=== PATIENT | male | born 1965 | race Caucasian/White ===

== ENCOUNTER 2018-03-13 08:16 | Emergency (ER) | payer SELFPAY ==
[2018-03-13] MEDS ORDERED: HYDROCODONE/APAP 10/325 TAB ONE (08:39)
[2018-03-13] MEDS ORDERED: CLINDAMYCIN 900MG/D5W 900 MG/50 ML BAG IV ONE (08:40)
--- NOTE | 2018-03-13 08:58 | ER ---
Nurse's Notes [facility] Name: Frank Rizvi Age: 52 yrs Sex: Male : 1965 Arrival Date: 03/13/2018 Time: 08:17 Bed 7 Private MD: None, None Diagnosis: Dental caries;Facial cellulitis Presentation: 03/13 08:14 Presenting complaint: EMS states: toothpain and right jaw swelling x 1 day. BP 137/88 sv HR-85 RR-18 Temp-99.8 95% RA. Transition of care: patient was not received from another setting of care. Onset of symptoms was March 12, 2018. Care prior to arrival: None. 08:14 Method Of Arrival: EMS: [facility] sv 08:14 Acuity: JAIR 3 sv 09:14 Risk Assessment: Do you want to hurt yourself or someone else? Patient reports no hb desire to harm self or others. Initial Sepsis Screen: Does the patient have a suspected source of infection? No. Patient's initial sepsis screen is negative. 09:34 Initial Sepsis Screen: Does the patient meet any 2 criteria?. hb Historical: - Allergies: 08:21 Toradol; sv 08:21 Tramadol HCl; sv - PMHx: 08:21 chronic intestinal problems; Chronic pain; constipation; fall-internal and back sv injuries; Kidney stones; - PSHx: 08:21 back surg; Knee surgery; sv - Immunization history:: Adult Immunizations up to date. - Social history:: Smoking status: Patient uses tobacco products, smokes one pack cigarettes per day. - Family history:: not pertinent. - Ebola Screening: : No symptoms or risks identified at this time. - Hospitalizations: : No recent hospitalization is reported. Screenin:52 Abuse screen: Denies threats or abuse. Denies injuries from another. Nutritional sg screening: No deficits noted. Tuberculosis screening: Never had TB. Fall Risk None identified. Assessment: 08:50 General: Appears in no apparent distress. uncomfortable, well groomed, well developed, sg well nourished, Behavior is calm, cooperative, appropriate for age. Pain: Complains of pain in right cheek and right jaw Quality of pain is described as throbbing. Neuro: Level of Consciousness is awake, alert, obeys commands, Oriented to person, place, time, Speech is normal, Facial symmetry appears normal. Cardiovascular: Heart tones S1 S2 present Capillary refill is brisk in bilateral fingers Patient's skin is warm and dry. Respiratory: Airway is patent Respiratory effort is even, unlabored, Respiratory pattern is regular, symmetrical. GI: Abdomen is round non-distended. : No signs and/or symptoms were reported regarding the genitourinary system. EENT: Oral mucosa is moist. Poor dentition noted. Throat is pink. Derm: Skin is pink, warm \T\ dry. Musculoskeletal: No signs and/or symptoms reported regarding the musculoskeletal system. Musculoskeletal: Swelling present in right cheek. 09:15 Reassessment: Patient appears in no apparent distress at this time. awaiting IV sg clindamycin to continue infusing prior to dc to home. Vital Signs: 08:20 BP 153 / 101; Pulse 78; Resp 18; Temp 98.5; Pulse Ox 100% ; Weight 65.77 kg; Height 5 sv ft. 7 in. (170.18 cm); Pain 7/10; 09:21 BP 128 / 88; Pulse 79; Resp 18; Pulse Ox 100% on R/A; sg 08:20 Body Mass Index 22.71 (65.77 kg, 170.18 cm) sv [place] Coma Score: 09:21 Eye Response: spontaneous(4). Verbal Response: oriented(5). Motor Response: obeys sg commands(6). Total: 15. ED Course: 08:17 Patient arrived in ED. rn 08:17 Medhat Hernandez MD is Attending Physician. rn 08:17 Ken Hall, GENESIS is Primary Nurse. sg 08:18 None, None is Private Physician. sg 08:18 Arm band placed on. sg 08:20 Triage completed. sv 08:53 Inserted saline lock: 22 gauge in right forearm, using aseptic technique. Blood sg collected. 09:15 Patient has correct armband on for positive identification. hb 09:35 No provider procedures requiring assistance completed. IV discontinued, intact, hb bleeding controlled, No redness/swelling at site. Pressure dressing applied. Administered Medications: 08:40 Drug: [place] 10 mg-325 mg 1 tabs Route: PO; sg 09:20 Follow up: Response: No adverse reaction; Pain is decreased sg 08:50 Drug: Clindamycin 900 mg Route: IVPB; Infused Over: 30 mins; Site: right forearm; sg 09:22 Follow up: Response: No adverse reaction; IV Status: Completed infusion sg Outcome: 08:58 Discharge ordered by . rn 09:35 Discharged to home ambulatory. hb 09:35 Condition: stable 09:35 Discharge instructions given to patient, Instructed on discharge instructions, follow up and referral plans. medication usage, Demonstrated understanding of instructions, follow-up care, medications, Prescriptions given X 2. 09:35 Patient left the ED. hb Signatures: Pepper Genao RN RN Ken Hall RN RN Medhat Hernandez MD MD rn Baxter, Heather, RN RN Corrections: (The following items were deleted from the chart) 08:22 08:20 Pulse 78bpm; Resp 18bpm; Pulse Ox 100%; Temp 98.5F; 65.77 kg; Height 5 ft. 7 in.; sv BMI: 22.7; Pain 7/10; sv
--- NOTE | 2018-03-13 08:58 | EDPHYS ---
Physician Documentation [facility] Name: Frank Rizvi Age: 52 yrs Sex: Male : 1965 Arrival Date: 03/13/2018 Time: 08:17 Bed 7 Private MD: None, None ED Physician Medhat Hernandez HPI: 03/13 08:18 This 52 yrs old Male presents to ER via Unassigned with complaints of facial rn swelling. 08:18 The patient presents with pain, swelling. Onset: The symptoms/episode began/occurred rn yesterday. Duration: The symptoms are continuous. Associated signs and symptoms: Pertinent positives: swelling, Pertinent negatives: fever, inability to eat, vomiting. The patient has experienced a previous episode. The patient has not recently seen a physician. Reports chronic dental problems, hasn't had them fixed yet, waiting on disability, presents with 1 day of swelling to right side of face, no fever, no trauma. No trouble swallowing or speaking.. Historical: - Allergies: 08:21 Toradol; sv 08:21 Tramadol HCl; sv - PMHx: 08:21 chronic intestinal problems; Chronic pain; constipation; fall-internal and back sv injuries; Kidney stones; - PSHx: 08:21 back surg; Knee surgery; sv - Immunization history:: Adult Immunizations up to date. - Social history:: Smoking status: Patient uses tobacco products, smokes one pack cigarettes per day. - Family history:: not pertinent. - Ebola Screening: : No symptoms or risks identified at this time. - Hospitalizations: : No recent hospitalization is reported. ROS: 08:18 Constitutional: Negative for fever, chills, and weight loss, Eyes: Negative for injury, rn pain, redness, and discharge, ENT: + chronic dental problems, + facial swelling Cardiovascular: Negative for chest pain, palpitations, and edema, Respiratory: Negative for shortness of breath, cough, wheezing, and pleuritic chest pain, Abdomen/GI: Negative for abdominal pain, nausea, vomiting, diarrhea, and constipation, MS/Extremity: Negative for injury and deformity, Skin: Negative for injury Neuro: + mild headache Exam: 08:18 Constitutional: Thin, discheveled male, no acute distress, ambulatory without rn assistance. Head/Face: atraumatic. Eyes: Pupils equal round and reactive to light, extra-ocular motions intact. Lids and lashes normal. Conjunctiva and sclera are non-icteric and not injected. Cornea within normal limits. Periorbital areas with no swelling, redness, or edema. ENT: + poor dentition without oral abscess, + mild swelling/edema of right cheek/face without fluctuance or tenderness Neck: Trachea midline, no thyromegaly or masses palpated, and no cervical lymphadenopathy. Supple, full range of motion without nuchal rigidity, or vertebral point tenderness. No Meningismus. Neuro: Awake and alert, GCS 15, oriented to person, place, time, and situation. Cranial nerves II-XII grossly intact. Motor strength 5/5 in all extremities. Sensory grossly intact. Cerebellar exam normal. Normal gait. Vital Signs: 08:20 BP 153 / 101; Pulse 78; Resp 18; Temp 98.5; Pulse Ox 100% ; Weight 65.77 kg; Height 5 sv ft. 7 in. (170.18 cm); Pain 7/10; 09:21 BP 128 / 88; Pulse 79; Resp 18; Pulse Ox 100% on R/A; sg 08:20 Body Mass Index 22.71 (65.77 kg, 170.18 cm) sv [place] Coma Score: 09:21 Eye Response: spontaneous(4). Verbal Response: oriented(5). Motor Response: obeys sg commands(6). Total: 15. MDM: 08:17 Patient medically screened. rn 08:57 Differential diagnosis: dental caries, buccal cellulitis, facial cellulitis. Data rn reviewed: vital signs, nurses notes, and as a result, I will discharge patient. Counseling: I had a detailed discussion with the patient and/or guardian regarding: the historical points, exam findings, and any diagnostic results supporting the discharge/admit diagnosis, the need for outpatient follow up, to return to the emergency department if symptoms worsen or persist or if there are any questions or concerns that arise at home. Special discussion: I discussed with the patient/guardian in detail that at this point there is no indication for admission to the hospital. It is understood, however, that if the symptoms persist or worsen the patient needs to return immediately for re-evaluation. Based on the history and exam findings, there is no indication for further emergent testing or inpatient evaluation. I discussed with the patient/guardian the need to see a dentist for further evaluation of the symptoms. ED course: No evidence of abscess, + early facial/buccal cellulitis, will dc home with abx, told ot return if worsens. . 03/13 08:22 Order name: IV Start; Complete Time: 08:54 rn Administered Medications: 08:40 Drug: [place] 10 mg-325 mg 1 tabs Route: PO; sg 09:20 Follow up: Response: No adverse reaction; Pain is decreased sg 08:50 Drug: Clindamycin 900 mg Route: IVPB; Infused Over: 30 mins; Site: right forearm; sg 09:22 Follow up: Response: No adverse reaction; IV Status: Completed infusion sg Disposition: 03/13/18 08:58 Discharged to Home. Impression: Dental caries, Facial cellulitis. - Condition is Stable. - Discharge Instructions: Dental Pain, Preseptal Cellulitis, Adult. - Prescriptions for Amoxicillin 875 mg Oral Tablet - take 1 tablet by ORAL route every 12 hours for 10 days; 20 tablet. Clindamycin HCl 300 mg Oral Capsule - take 1 capsule by ORAL route every 6 hours for 10 days; 40 capsule. - Medication Reconciliation Form, Thank You Letter, Antibiotic Education, Prescription Opioid Use form. - Follow up: Private Physician; When: As needed; Reason: Recheck today's complaints, Re-evaluation by your physician. - Problem is new. - Symptoms have improved. Signatures: Pepper Genao RN RN Ken Hall RN RN Medhat Hernandez MD MD rn Baxter, Heather, RN RN Corrections: (The following items were deleted from the chart) 09:35 08:58 03/13/2018 08:58 Discharged to Home. Impression: Dental caries; Facial hb cellulitis. Condition is Stable. Forms are Medication Reconciliation Form, Thank You Letter, Antibiotic Education, Prescription Opioid Use. Follow up: Private Physician; When: As needed; Reason: Recheck today's complaints, Re-evaluation by your physician. Problem is new. Symptoms have improved. rn
== END 2018-03-13 09:35 | disposition home or self-care (01) ==
LOC: ER 08:16
DX: K02.9 Dental caries, unspecified (principal); L03.211 Cellulitis of face; F17.210 Nicotine dependence, cigarettes, uncomplicated; Z88.5 Allergy status to narcotic agent; Z88.6 Allergy status to analgesic agent
CPT/HCPCS: 96365; 99284

== ENCOUNTER 2019-02-05 20:45 | Inpatient (IN) | payer OTHER, SELFPAY ==
[2019-02-05] MEDS ORDERED: NA CHLORIDE 0.9% 1,000 ML ONE ×2 (21:07→22:53)
[2019-02-05] MEDS ORDERED: ONDANSETRON 4 MG/2 ML VIAL ONE (21:07)
[2019-02-05 21:27] LABS: Absolute Lymphocytes (CBC) 1.9 K/uL (0.7-4.9); Basophils % 0.6 % (0-1.3); Hematocrit 41.9 % (39.6-49.0); Lymphocytes % 18.1 % (15.3-44.8); MPV 7.8 fL (7.6-11.3); RBC Red Blood Cell Count 4.44 M/uL (4.33-5.43)
[2019-02-05 21:38] LABS: Albumin 4.7 g/dL (3.4-5.0); Bilirubin Direct 0.2 mg/dL (0-0.2); Bilirubin Total 0.4 mg/dL (0.2-1.0); Potassium 3.5 mmol/L (3.5-5.1)
[2019-02-05] MEDS ORDERED: FAMOTIDINE 20 MG/2 ML VIAL IV ONE (21:48)
[2019-02-05] MEDS ORDERED: FENTANYL CITR 100 MCG/2 ML ONE (22:03)
[2019-02-05 22:23] LABS: Urine Blood NEGATIVE (NEG); Urine Glucose NEGATIVE (NEG); Urine Protein 2+ (NEG); Urine Specific Gravity 1.025 (1.005-1.030)
--- NOTE | 2019-02-05 22:40 | EDPHYS ---
Physician Documentation [facility] Name: Frank Rizvi Age: 53 yrs Sex: Male : 1965 Arrival Date: 02/05/2019 Time: 20:48 Bed 25 Private MD: ED Physician José Miguel Cevallos HPI: 02/05 22:26 This 53 yrs old Male presents to ER via EMS with complaints of gs Nausea/Vomiting. 22:26 The patient presents to the emergency department with nausea, vomiting. Onset: The gs symptoms/episode began/occurred 2 day(s) ago. Possible causes: flare up of bowel problem. The symptoms are aggravated by food , The symptoms are alleviated by nothing. Associated signs and symptoms: Pertinent positives: abdominal pain, vomiting. Severity of symptoms: At their worst the symptoms were severe in the emergency department the symptoms are unchanged. The patient has experienced similar episodes in the past, a few times. Historical: - Allergies: 20:58 Toradol; ca1 20:58 Tramadol HCl; ca1 - Home Meds: 20:58 gabapentin oral oral [Active]; Ibuprofen Oral [Active]; ca1 - PMHx: 20:58 chronic intestinal problems; constipation; Chronic pain; fall-internal and back ca1 injuries; Kidney stones; - PSHx: 20:58 back surg; Knee surgery; ca1 - Immunization history:: Adult Immunizations not up to date. - Social history:: Smoking status: Patient uses tobacco products, smokes one-half pack cigarettes per day. - Ebola Screening: : Patient negative for fever greater than or equal to 101.5 degrees Fahrenheit, and additional compatible Ebola Virus Disease symptoms Patient denies exposure to infectious person Patient denies travel to an Ebola-affected area in the 21 days before illness onset No symptoms or risks identified at this time. ROS: 22:26 All other systems are negative. gs Exam: 22:26 Head/Face: Normocephalic, atraumatic. Eyes: Pupils equal round and reactive to light, gs extra-ocular motions intact. Lids and lashes normal. Conjunctiva and sclera are non-icteric and not injected. Cornea within normal limits. Periorbital areas with no swelling, redness, or edema. ENT: Nares patent. No nasal discharge, no septal abnormalities noted. Tympanic membranes are normal and external auditory canals are clear. Oropharynx with no redness, swelling, or masses, exudates, or evidence of obstruction, uvula midline. Mucous membranes moist. Neck: Trachea midline, no thyromegaly or masses palpated, and no cervical lymphadenopathy. Supple, full range of motion without nuchal rigidity, or vertebral point tenderness. No Meningismus. Chest/axilla: Normal chest wall appearance and motion. Nontender with no deformity. No lesions are appreciated. Cardiovascular: Regular rate and rhythm with a normal S1 and S2. No gallops, murmurs, or rubs. Normal PMI, no JVD. No pulse deficits. Respiratory: Lungs have equal breath sounds bilaterally, clear to auscultation and percussion. No rales, rhonchi or wheezes noted. No increased work of breathing, no retractions or nasal flaring. Back: No spinal tenderness. No costovertebral tenderness. Full range of motion. Skin: Warm, dry with normal turgor. Normal color with no rashes, no lesions, and no evidence of cellulitis. MS/ Extremity: Pulses equal, no cyanosis. Neurovascular intact. Full, normal range of motion. Neuro: Awake and alert, GCS 15, oriented to person, place, time, and situation. Cranial nerves II-XII grossly intact. Motor strength 5/5 in all extremities. Sensory grossly intact. Cerebellar exam normal. Normal gait. 22:26 Constitutional: The patient appears alert, awake, uncomfortable. 22:26 Abdomen/GI: Inspection: abdomen appears normal, Palpation: soft, in all quadrants, mild abdominal tenderness, in all quadrants, rebound tenderness, is not appreciated. Vital Signs: 20:58 BP 126 / 78; Pulse 93; Resp 16 S; Temp 98.7(O); Pulse Ox 99% on R/A; Weight 65.77 kg ca1 (R); Height 5 ft. 7 in. (170.18 cm) (R); Pain 9/10; 22:12 BP 152 / 83; Pulse 82; Resp 16 S; Pulse Ox 99% on R/A; ca1 23:55 BP 125 / 80; Pulse 82; Resp 15; Pulse Ox 98% on R/A; rv 20:58 Body Mass Index 22.71 (65.77 kg, 170.18 cm) ca1 MDM: 21:06 Patient medically screened. gs 22:26 Differential diagnosis: Nonspecific abd pain, gastritis, pancreatitis, gastroenteritis. gs Data reviewed: vital signs, nurses notes, old medical records, lab test result(s), EKG, radiologic studies. Counseling: I had a detailed discussion with the patient and/or guardian regarding: lab results, the need for further work-up and treatment in the hospital. Response to treatment: the patient's symptoms have markedly improved after treatment, and as a result, I will admit patient. 02/05 21:04 Order name: Basic Metabolic Panel; Complete Time: 21:47 02/05 21:04 Order name: CBC with Diff; Complete Time: 21:47 02/05 21:04 Order name: Hepatic Function; Complete Time: 21:47 02/05 21:04 Order name: Lipase; Complete Time: 21:47 02/05 22:06 Order name: Urine Dipstick--Ancillary (enter results); Complete Time: 22:47 ag4 02/05 23:18 Order name: Comprehensive Metabolic Panel [facility] 02/05 23:18 Order name: Comprehensive Metabolic Panel [facility] 02/05 23:19 Order name: CONS Pharmacy Consult [facility] 02/05 23:19 Order name: NPO [facility] 02/05 21:04 Order name: IV Saline Lock; Complete Time: 21:15 02/05 21:04 Order name: Labs collected and sent; Complete Time: 21:15 02/05 21:47 Order name: EKG - Nurse/Tech; Complete Time: 22:09 gs Administered Medications: 21:18 Drug: NS 0.9% 1000 ml Route: IV; Rate: 1 bolus; Site: left antecubital; ca1 22:38 Follow up: Response: No adverse reaction; IV Status: Completed infusion; IV Intake: ca1 1000ml 21:18 Drug: Zofran 4 mg Route: IVP; Site: left antecubital; ca1 22:38 Follow up: Response: No adverse reaction; Nausea is decreased ca1 21:55 Drug: Pepcid 20 mg Route: IVP; Site: left antecubital; rv 22:37 Follow up: Response: No adverse reaction ca1 22:05 Drug: fentaNYL (PF) 50 mcg {Note: rass: 1.} Route: IVP; Site: left antecubital; rv 22:37 Follow up: Response: No adverse reaction; Pain is decreased; RASS: Alert and Calm (0) ca1 22:57 Drug: NS 0.9% 1000 ml Route: IV; Rate: 150 ml/hr; Site: left antecubital; ca1 22:58 Follow up: IV Status: Infusion continued upon admission ca1 Disposition: 02/05/19 22:38 Hospitalization ordered by Barry Katz for Inpatient Admission. Preliminary diagnosis are Acute pancreatitis, Cyclical vomiting, intractable. - Bed requested for Telemetry/MedSurg (Inpatient). - Status is Inpatient Admission. rv - Condition is Stable. - Problem is new. - Symptoms have improved. UTI on Admission? No Signatures: Dispatcher [employer] EDHelga Ashford RN RN cg José Miguel Cevallos MD MD Maciej Ray RN RN rv Acob, GENESIS Sheriff RN ca1 Corrections: (The following items were deleted from the chart) 22:47 22:38 Hospitalization Ordered by Barry Katz MD for Inpatient Admission. Preliminary diagnosis is Acute pancreatitis. Bed requested for Telemetry/MedSurg (Inpatient). Status is Inpatient Admission. Condition is Stable. Problem is new. Symptoms have improved. UTI on Admission? No. gs 23:54 22:47 02/05/2019 22:38 Hospitalization Ordered by Barry Katz MD for Inpatient cg Admission. Preliminary diagnosis is Acute pancreatitis; Cyclical vomiting, intractable. Bed requested for Telemetry/MedSurg (Inpatient). Status is Inpatient Admission. Condition is Stable. Problem is new. Symptoms have improved. UTI on Admission? No. 02/06 00:12 02/05 23:54 02/05/2019 22:38 Hospitalization Ordered by Barry Katz MD for Inpatient rv Admission. Preliminary diagnosis is Acute pancreatitis; Cyclical vomiting, intractable. Bed requested for Telemetry/MedSurg (Inpatient). Status is Inpatient Admission. Condition is Stable. Problem is new. Symptoms have improved. UTI on Admission? No.
--- NOTE | 2019-02-05 22:40 | ER ---
Nurse's Notes [facility] Name: Frank Rizvi Age: 53 yrs Sex: Male : 1965 Arrival Date: 02/05/2019 Time: 20:48 Bed 25 Private MD: Diagnosis: Acute pancreatitis;Cyclical vomiting, intractable Presentation: 02/05 20:53 Presenting complaint: EMS states: pt c/o N/V and abdominal pain for 2 days. Pt reports ca1 he had a spinal injury on 2014 that left a part of his intestine numb. 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 Transition of care: patient was not received from another setting of care. Onset of symptoms was February 05, 2019. Risk Assessment: Do you want to hurt yourself or someone else? Patient reports no desire to harm self or others. Initial Sepsis Screen: Does the patient meet any 2 criteria? No. Patient's initial sepsis screen is negative. Does the patient have a suspected source of infection? No. Patient's initial sepsis screen is negative. Care prior to arrival: None. 20:53 Method Of Arrival: EMS: [facility] ca1 20:53 Acuity: JAIR 3 ca1 Historical: - Allergies: 20:58 Toradol; ca1 20:58 Tramadol HCl; ca1 - Home Meds: 20:58 gabapentin oral oral [Active]; Ibuprofen Oral [Active]; ca1 - PMHx: 20:58 chronic intestinal problems; constipation; Chronic pain; fall-internal and back ca1 injuries; Kidney stones; - PSHx: 20:58 back surg; Knee surgery; ca1 - Immunization history:: Adult Immunizations not up to date. - Social history:: Smoking status: Patient uses tobacco products, smokes one-half pack cigarettes per day. - Ebola Screening: : Patient negative for fever greater than or equal to 101.5 degrees Fahrenheit, and additional compatible Ebola Virus Disease symptoms Patient denies exposure to infectious person Patient denies travel to an Ebola-affected area in the 21 days before illness onset No symptoms or risks identified at this time. Screenin:59 Abuse screen: Denies threats or abuse. Denies injuries from another. Nutritional ca1 screening: No deficits noted. Tuberculosis screening: No symptoms or risk factors identified. Fall Risk None identified. Assessment: 20:59 General: Appears in no apparent distress. comfortable, Behavior is calm, cooperative, ca1 appropriate for age. Pain: Complains of pain in umbilical area Pain does not radiate. Pain currently is 9 out of 10 on a pain scale. Quality of pain is described as stabbing, Pain began 2-3 days ago. Is intermittent. Neuro: Level of Consciousness is awake, alert, obeys commands, Oriented to person, place, time, situation, Appropriate for age. Cardiovascular: Heart tones S1 S2 present Capillary refill < 3 seconds Patient's skin is warm and dry. Respiratory: Airway is patent Respiratory effort is even, unlabored, Respiratory pattern is regular, symmetrical, Breath sounds are clear bilaterally. GI: Abdomen is flat, non-distended, Bowel sounds present X 4 quads. Abd is soft X 4 quads Abdomen is tender to palpation in umbilical area Reports constipation, diarrhea, nausea, vomiting. : No deficits noted. No signs and/or symptoms were reported regarding the genitourinary system. EENT: No deficits noted. No signs and/or symptoms were reported regarding the EENT system. Derm: Skin is intact, is healthy with good turgor, Skin is pink, warm \T\ dry. Musculoskeletal: Circulation, motion, and sensation intact. Capillary refill < 3 seconds, Range of motion: intact in all extremities. 22:12 Reassessment: Patient appears in no apparent distress at this time. Patient and/or ca1 family updated on plan of care and expected duration. Pain level reassessed. Patient is alert, oriented x 3, equal unlabored respirations, skin warm/dry/pink. Vital Signs: 20:58 BP 126 / 78; Pulse 93; Resp 16 S; Temp 98.7(O); Pulse Ox 99% on R/A; Weight 65.77 kg ca1 (R); Height 5 ft. 7 in. (170.18 cm) (R); Pain 9/10; 22:12 BP 152 / 83; Pulse 82; Resp 16 S; Pulse Ox 99% on R/A; ca1 23:55 BP 125 / 80; Pulse 82; Resp 15; Pulse Ox 98% on R/A; rv 20:58 Body Mass Index 22.71 (65.77 kg, 170.18 cm) ca1 ED Course: 20:48 Patient arrived in ED. ds1 20:50 José Miguel Cevallos MD is Attending Physician. gs 20:52 Sharita Metz, RN is Primary Nurse. ca1 20:56 Triage completed. ca1 20:58 Arm band placed on right wrist. ca1 20:59 Patient has correct armband on for positive identification. Bed in low position. Call ca1 light in reach. Side rails up X 1. Pulse ox on. NIBP on. Warm blanket given. 21:18 No provider procedures requiring assistance completed. Inserted saline lock: 20 gauge ca1 in left antecubital area, using aseptic technique. Blood collected. 22:38 Barry Katz MD is Hospitalizing Provider. 02/06 00:11 Patient admitted, IV remains in place. rv Administered Medications: 02/05 21:18 Drug: NS 0.9% 1000 ml Route: IV; Rate: 1 bolus; Site: left antecubital; ca1 22:38 Follow up: Response: No adverse reaction; IV Status: Completed infusion; IV Intake: ca1 1000ml 21:18 Drug: Zofran 4 mg Route: IVP; Site: left antecubital; ca1 22:38 Follow up: Response: No adverse reaction; Nausea is decreased ca1 21:55 Drug: Pepcid 20 mg Route: IVP; Site: left antecubital; rv 22:37 Follow up: Response: No adverse reaction ca1 22:05 Drug: fentaNYL (PF) 50 mcg {Note: rass: 1.} Route: IVP; Site: left antecubital; rv 22:37 Follow up: Response: No adverse reaction; Pain is decreased; RASS: Alert and Calm (0) ca1 22:57 Drug: NS 0.9% 1000 ml Route: IV; Rate: 150 ml/hr; Site: left antecubital; ca1 22:58 Follow up: IV Status: Infusion continued upon admission ca1 Intake: 22:38 IV: 1000ml; Total: 1000ml. ca1 Outcome: 22:38 Decision to Hospitalize by Provider. 02/06 00:10 Admitted to Med/surg accompanied by nurse, via wheelchair, room 204, with chart, Report rv called to [facility]EN Condition: good Instructed on the need for admit. 00:12 Patient left the ED. rv Signatures: Brenda Cline ds1 José Miguel Cevallos MD MD Maciej Ray RN RN rv Sharita Metz RN RN ca1
[2019-02-05] MEDS ORDERED: MORPHINE 4 MG/ML SYR IV PRN (23:13)
[2019-02-05] MEDS ORDERED: ONDANSETRON 4 MG/2 ML VIAL IV PRN (23:13)
[2019-02-05] MEDS ORDERED: ACETAMINOPHEN 500 MG TAB PO PRN (23:13)
[2019-02-06] MEDS: NA CHLORIDE 0.9% 1,000 ML IV SCH ×5 (00:52→21:39)
[2019-02-06 02:36] VITALS: BMI 23.5
[2019-02-06 05:42] LABS: Absolute Lymphocytes (CBC) 3.1 K/uL (0.7-4.9); Basophils % 1.2 % (0-1.3); Hematocrit 35.7 % (39.6-49.0)
[2019-02-06 05:45] LABS: ALT/SGPT 41 U/L (12-78); AST/SGOT 31 U/L (15-37); Albumin 3.9 g/dL (3.4-5.0); Alkaline Phosphatase 102 U/L (45-117); BUN Blood Urea Nitrogen 22 mg/dL (7-18); Bicarbonate 26 mmol/L (21-32); Bilirubin Total 0.4 mg/dL (0.2-1.0); Glucose Level 104 mg/dL (74-106); Lipase 497 U/L (73-393); Potassium 3.3 mmol/L (3.5-5.1); Protein, Total 8.2 g/dL (6.4-8.2); Sodium Level 138 mmol/L (136-145); Troponin I < 0.02 ng/mL (0.0-0.045)
[2019-02-06 05:57] LABS: Protime INR 1.01
[2019-02-06] MEDS ORDERED: MAGNESIUM CITRATE 300 ML BOT PO SCH (06:00)
--- NOTE | 2019-02-06 09:48 | EKG ---
Test Date: 2019-02-05 Test Time: 22:06:56 Bander Operator: SHAUNNA MEASUREMENT RESULTS: Intervals: Rate: 80 TN: 162 QRSD: 100 QT: 368 QTc: 424 [place]: P: 52 TN: 162 QRS: 71 T: 70 INTERPRETIVE STATEMENTS: Normal sinus rhythm Incomplete right bundle branch block Septal infarct, age undetermined Abnormal ECG Compared to ECG 01/15/2016 14:14:06 Incomplete right bundle-branch block now present Myocardial infarct finding now present Electronically Signed On 02-06-19 09:47:31 CDT by Solo Alvares
--- NOTE | 2019-02-06 10:15 | P.HP ---
Certification for Inpatient Patient admitted to: Inpatient With expected LOS: >2 Midnights Patient will require the following post-hospital care: None Practitioner: I am a practitioner with admitting privileges, knowledge of patient current condition, hospital course, and medical plan of care. Services: Services provided to patient in accordance with Admission requirements found in Title 42 Section 412.3 of the Code of Federal Regulations Patient History Date of Service: 02/05/19 Reason for admission: Acute pancreatitis History of Present Illness: Patient is a 53-year-old gentleman who came into the hospital with abdominal pain. He has had frequent admissions for abdominal pain. He has had a spinal cord injury that was suffered a long time ago. He required surgical intervention. The weakness and paralysis did not significantly improve. He has also had intestinal issues. He has developed bladder and bowel retention. He tends to have a lot of issue with constipation. He was having nausea and vomiting and abdominal pain. He was thinking this was related to his prior issues since his spinal cord injury. He decided to come into the hospital for evaluation. Surprisingly his labs revealed he had acute pancreatitis. Decision was made to admit the patient to the hospital for further evaluation. Allergies ketorolac Allergy (Verified 02/06/19 00:25) Hives/Rash Tramadol HCl Allergy (Uncoded 02/06/19 00:25) Hives/Rash - Past Medical/Surgical History Has patient received pneumonia vaccine in the past: No Diabetic: No -: paralyzed intestine -: chronic pain -: artificial vertebrae -: titanium plates-back -: spinal cord injury-back injury -: kidney stones -: Back surgery -: Left knee surgery -: Kidney stone removal - Family History Father Medical History: Heart disease, Other (see notes) Notes: heart attack Mother Medical History: Hypertension Grandmother Medical History: Cancer, Other (see notes) Notes: ovarian CA - Social History Smoking Status: Current every day smoker Alcohol use: No CD- Drugs: No Caffeine use: Yes Place of Residence: Home Review of Systems 10-point ROS is otherwise unremarkable Physical Examination - Vital Signs Temperature: 98.4 F Blood Pressure: 145/87 Pulse: 82 Respirations: 20 Pulse Ox (%): 99 - Physical Exam General: Alert, In no apparent distress, Oriented x3 HEENT: Atraumatic, PERRLA, Mucous membr. moist/pink, EOMI, Sclerae nonicteric Neck: Supple, 2+ carotid pulse no bruit, No LAD, Without JVD or thyroid abnormality Respiratory: Clear to auscultation bilaterally, Normal air movement Cardiovascular: Regular rate/rhythm, Normal S1 S2, No murmurs Gastrointestinal: Hypoactive, Soft and benign, No rebound, No guarding, Distended, Tenderness Musculoskeletal: No clubbing, No swelling, No tenderness Integumentary: No rashes Neurological: Normal speech, Normal tone, Sensation intact, Cranial nerves 3-12 intact, Normal affect, Abnormal gait, Abnormal strength Lymphatics: No axilla or inguinal lymphadenopathy - Studies Laboratory Data (last 24 hrs) 02/05/19 21:13: WBC 10.4, Hgb 14.3, Hct 41.9, Plt Count 308 02/05/19 21:13: Sodium 137, Potassium 3.5, BUN 22 H, Creatinine 2.24 H, Glucose 145 H, Total Bilirubin 0.4, AST 36, ALT 53, Alkaline Phosphatase 123 H, Lipase 929 H Assessment & Plan - Problems (Diagnosis) (1) Acute pancreatitis Current Visit: Yes Status: Acute (2) Chronic back pain Current Visit: Yes Status: Chronic (3) Spinal cord injury Current Visit: Yes Status: Chronic (4) Bladder retention Current Visit: Yes Status: Chronic (5) Chronic constipation Current Visit: Yes Status: Chronic - Plan Plan: 1. IV hydration 3. Pain control 3. NPO 4. Laxatives for his chronic constipation 5. monitor lipase & monitor electrolytes 6. abdominal ultrasound /MRCP 7. GI and DVT prophylaxis Discharge Plan: Home Plan to discharge in: Greater than 2 days - Advance Directives Does patient have a Living Will: No Does patient have a Durable POA for Healthcare: No - Code Status/Comfort Care Code Status Assessed: Yes Code Status: Full Code Critical Care: No Time Spent Managing PTS Care (In Minutes): 40
[2019-02-06] MEDS: SIMETHICONE 80 MG TAB PO PRN (11:26)
[2019-02-06] MEDS ORDERED: LORazepam 2 MG/ML VIAL IV ONE (23:35)
[2019-02-07 07:21] LABS: Absolute Lymphocytes (CBC) 2.8 K/uL (0.7-4.9); Basophils % 1.1 % (0-1.3); Hematocrit 36.1 % (39.6-49.0); Lymphocytes % 35.3 % (15.3-44.8); MPV 7.7 fL (7.6-11.3); RBC Red Blood Cell Count 3.78 M/uL (4.33-5.43)
[2019-02-07 07:37] LABS: Potassium 4.2 mmol/L (3.5-5.1)
[2019-02-07 09:24] VITALS: O2SAT 99
[2019-02-07 09:42] VITALS: BP 156/90; TEMP 98.4
[2019-02-07] MEDS: SIMETHICONE 80 MG TAB PO PRN (12:43)
--- NOTE | 2019-02-07 15:55 | P.PN ---
Subjective Date of Service: 02/06/19 Chief Complaint: Acute pancreatitis Subjective: Improving Patient seen and examined at bedside. No family at bedside. Chart reviewed and case discussed with nursing staff. Patient reports improving pain. would like his diet advanced. Review of Systems 10-point ROS is otherwise unremarkable Physical Examination - Vital Signs Temperature: 98.4 F Blood Pressure: 156/90 Pulse: 71 Respirations: 20 Pulse Ox (%): 99 - Physical Exam General: Alert, In no apparent distress HEENT: Atraumatic, PERRLA, EOMI Neck: Supple, JVD not distended Respiratory: Clear to auscultation bilaterally, Normal air movement Cardiovascular: Regular rate/rhythm, Normal S1 S2 Gastrointestinal: Normal bowel sounds, No tenderness Musculoskeletal: No tenderness Integumentary: No rashes Neurological: Normal speech, Normal tone, Normal affect Lymphatics: No axilla or inguinal lymphadenopathy Assessment And Plan - Current Problems (Diagnosis) (1) Acute pancreatitis Status: Acute (2) Bladder retention Status: Chronic (3) Chronic back pain Status: Chronic (4) Chronic constipation Status: Chronic (5) Spinal cord injury Status: Chronic - Plan Plan: 1. Continue IV hydration 3. Pain control 3. CLD, advance as tolerated 4. Laxatives for his chronic constipation 5. monitor lipase & monitor electrolytes 6. abdominal ultrasound /MRCP if needed. 7. GI and DVT prophylaxis
--- NOTE | 2019-02-07 16:01 | P.DS ---
Admission Date: 02/05/19 Discharge Date: 02/07/19 Disposition: ROUTINE DISCHARGE Discharge Condition: FAIR Reason for Admission: Acute pancreatitis - Problems (1) Acute pancreatitis Status: Acute (2) Bladder retention Status: Chronic (3) Chronic back pain Status: Chronic (4) Chronic constipation Status: Chronic (5) Spinal cord injury Status: Chronic Brief History of Present Illness: Patient is a 53-year-old gentleman who came into the hospital with abdominal pain. He has had frequent admissions for abdominal pain. He has had a spinal cord injury that was suffered a long time ago. He required surgical intervention. The weakness and paralysis did not significantly improve. He has also had intestinal issues. He has developed bladder and bowel retention. He tends to have a lot of issue with constipation. He was having nausea and vomiting and abdominal pain. He was thinking this was related to his prior issues since his spinal cord injury. He decided to come into the hospital for evaluation. Surprisingly his labs revealed he had acute pancreatitis. Decision was made to admit the patient to the hospital for further evaluation. Hospital Course: Patient was admitted for acute pancreatitis. he was kept NPO. His symptoms were treated. His symptoms improved and his diet was slowly advanced. His symptoms returned to baseline and he was then discharged home in a safe and stable manner. He is pending his medicaid/insurance process to get further workup with a specialist for his chronic diseases. He is pending a court date and then will be able to follow up with specialist He was discharged home in a safe and stable manner. Vital Signs/Physical Exam: Temp Pulse Resp BP Pulse Ox 98.4 F 71 20 156/90 H 99 02/07/19 15:55 02/07/19 15:55 02/07/19 15:55 02/07/19 15:55 02/07/19 15:55 General: Alert, In no apparent distress HEENT: Atraumatic, PERRLA, EOMI Neck: Supple, JVD not distended Respiratory: Clear to auscultation bilaterally, Normal air movement Cardiovascular: Regular rate/rhythm, Normal S1 S2 Gastrointestinal: Normal bowel sounds, No tenderness Musculoskeletal: No tenderness Integumentary: No rashes Neurological: Normal speech, Normal tone, Normal affect Lymphatics: No axilla or inguinal lymphadenopathy Laboratory Data at Discharge: WBC 7.8 K/uL (4.3-10.9) D 02/07/19 07:10 Hgb 12.2 g/dL (13.6-17.9) L 02/07/19 07:10 Hct 36.1 % (39.6-49.0) L 02/07/19 07:10 Plt Count 259 K/uL (152-406) 02/07/19 07:10 PT 11.9 SECONDS (9.5-12.5) 02/06/19 05:02 INR 1.01 02/06/19 05:02 APTT 34.0 SECONDS (24.3-36.9) 02/06/19 05:02 Sodium 143 mmol/L (136-145) 02/07/19 07:10 Potassium 4.2 mmol/L (3.5-5.1) 02/07/19 07:10 BUN 16 mg/dL (7-18) 02/07/19 07:10 Creatinine 1.06 mg/dL (0.55-1.3) 02/07/19 07:10 Glucose 95 mg/dL (74-106) 02/07/19 07:10 Total Bilirubin 0.4 mg/dL (0.2-1.0) 02/06/19 05:02 AST 31 U/L (15-37) 02/06/19 05:02 ALT 41 U/L (12-78) 02/06/19 05:02 Alkaline Phosphatase 102 U/L (45-117) 02/06/19 05:02 Troponin I < 0.02 ng/mL (0.0-0.045) 02/06/19 05:02 Lipase 122 U/L (73-393) 02/07/19 07:10 Home Medications: Acetaminophen 500 mg PO Q6H PRN 02/06/19 Gabapentin 300 mg PO BEDTIME 02/06/19 Ibuprofen 1 tab PO TID PRN 02/06/19 Magnesium Oxide [Magnesium] 400 mg PO DAILY 02/06/19 Meloxicam 15 mg PO DAILY 02/06/19 Tizanidine HCl 1 tab PO DAILY PRN 02/06/19 Vit B12/Lmefolate Ca/Vit B6/B2 [Metafolbic Tablet] 1 tab PO DAILY 02/06/19 Pantoprazole Sodium [Protonix] 20 mg PO DAILY #30 tablet. 02/07/19 Simethicone [Mylicon*] 80 mg PO Q6H PRN #15 tab 02/07/19 New Medications: Pantoprazole Sodium [Protonix] 20 mg PO DAILY #30 tablet. Simethicone [Mylicon*] 80 mg PO Q6H PRN #15 tab PRN Reason: Gas Patient Discharge Instructions: Please follow up with the specialists as we have discussed. Please return to the ER for worsening symptoms. Diet: As tolerated Activity: Ad lona Time spent managing pt's care (in minutes): 55
== END 2019-02-07 13:15 | disposition home or self-care (01) | DRG 440 ==
LOC: ER 20:45 → ERHOLD 23:13 → 2ND 02-06 00:07
PROVIDERS: ADMIT Hospitalist; ATTEND Hospitalist
DX: K85.90 Acute pancreatitis without necrosis or infection, unspecified (principal); R33.9 Retention of urine, unspecified; M54.9 Dorsalgia, unspecified; K59.00 Constipation, unspecified; Z87.828 Personal history of other (healed) physical injury and trauma; F17.210 Nicotine dependence, cigarettes, uncomplicated
CPT/HCPCS: 36415; 80048; 80053; 80076; 81003; 83690; 84484; 85025; 85610; 85730; 93005; 96361; 96374; 96375; 99285; J2405; J3010; J7030

== ENCOUNTER → 2023-11-24 | Day surgery (SDC) | payer OTHER ==
[2023-11-23 11:52] LABS: Absolute Eosinophils 0.2 K/uL (0-0.5); Absolute Lymphocytes (CBC) 3.1 K/uL (0.7-4.9); Absolute Monocytes 0.7 K/uL (0.1-1.3); Absolute Neutrophil 3.6 K/uL (1.8-8.0); Basophils % 0.5 % (0-1.3); Eosinophils % 2.7 % (0-4.4); Hematocrit 37.9 % (39.6-49.0); Hemoglobin 12.2 g/dL (13.6-17.9); Lymphocytes % 40.5 % (15.3-44.8); MCH 30.4 pg (27.0-35.0); MCHC 32.3 g/dL (32.0-36.0); MCV 94.1 fL (80-100); MPV 7.3 fL (7.6-11.3); Monocytes % 9.6 % (3.3-12.3); Neutrophils % 46.7 % (41.7-73.7); Platelets 279 thou/uL (152-406); RBC Red Blood Cell Count 4.02 M/uL (4.33-5.43); Red Cell Distribution Width 14.3 % (12.1-15.2)
[2023-11-23 12:06] LABS: Anion Gap 3.1 mEq/L (5.0-15.0); Potassium 4.1 mEq/L (3.5-5.1)
[~2023-11-24] MED LIST: LIDOCAINE 1% MPF 5 ML VIAL ONE; NA CHLORIDE 0.9% 500 ML ONE; propofoL 200 MG/20 ML VIAL IV ONE
[2023-11-24] MEDS: Ringers Lactate 1,000 ML IV ONE (07:00)
[2023-11-24 09:10] VITALS: BP 124/83; TEMP 97.3; O2SAT 100
--- NOTE | 2023-11-24 16:53 | EKG ---
Test Date: 2023-11-23 Test Time: 11:29:34 Laundry Routeman: PREO MEASUREMENT RESULTS: Intervals: Rate: 57 LA: 168 QRSD: 104 QT: 382 QTc: 371 [place]: P: 26 LA: 168 QRS: 75 T: 54 INTERPRETIVE STATEMENTS: Sinus bradycardia Otherwise normal ECG Compared to ECG 02/05/2019 22:06:56 Sinus rhythm no longer present Incomplete right bundle-branch block no longer present Myocardial infarct finding no longer present Electronically Signed On 11-24-23 16:49:10 CDT by Richar Rooney
== END ==
LOC: OR 06:48
PROVIDERS: ATTEND Surgery
PROC: 0DJD8ZZ Inspection of Lower Intestinal Tract, Via Natural or Artificial Opening Endoscopic (ICD-10-PCS; principal; 2023-11-24 08:00)
DX: Z12.11 Encounter for screening for malignant neoplasm of colon (principal); Z91.199 Patient's noncompliance with other medical treatment and regimen due to unspecified reason; Z71.1 Person with feared health complaint in whom no diagnosis is made
CPT/HCPCS: 93005; 85025; 80048; 36415; 45378; J2704; J2001; J7120; J7040

== ENCOUNTER 2024-06-13 11:34 | Day surgery (SDC) | payer OTHER ==
[2024-06-05 16:33] LABS: Absolute Basophils 0.1 K/uL (0-0.5); Absolute Eosinophils 0.7 K/uL (0-0.5); Absolute Lymphocytes (CBC) 3.8 K/uL (0.7-4.9); Absolute Monocytes 0.8 K/uL (0.1-1.3); Absolute Neutrophil 3.6 K/uL (1.8-8.0); Basophils % 1.1 % (0-1.3); Eosinophils % 7.4 % (0-4.4); Hematocrit 38.8 % (39.6-49.0); Hemoglobin 13.1 g/dL (13.6-17.9); Lymphocytes % 42.7 % (15.3-44.8); MCH 31.6 pg (27.0-35.0); MCHC 33.6 g/dL (32.0-36.0); MCV 93.9 fL (80-100); MPV 7.2 fL (7.6-11.3); Monocytes % 9.1 % (3.3-12.3); Neutrophils % 39.7 % (41.7-73.7); Nucleated Red Blood Cells % 0.1 % (0-0); Platelets 284 thou/uL (152-406); RBC Red Blood Cell Count 4.14 M/uL (4.33-5.43); Red Cell Distribution Width 13.4 % (12.1-15.2)
[2024-06-05 16:46] LABS: Anion Gap 4.9 mEq/L (5.0-15.0); Potassium 3.9 mEq/L (3.5-5.1)
--- NOTE | 2024-06-07 15:50 | EKG ---
Test Date: 2024-06-05 Test Time: 16:50:35 Sales Order Specialist: PREO MEASUREMENT RESULTS: Intervals: Rate: 66 CA: 154 QRSD: 106 QT: 378 QTc: 396 [place]: P: 5 CA: 154 QRS: 89 T: 36 INTERPRETIVE STATEMENTS: Normal sinus rhythm Normal ECG Compared to ECG 11/23/2023 11:29:34 Sinus bradycardia no longer present Electronically Signed On 06-07-24 15:47:37 NARROW GAUGE ENGINEER by Vikas Davison
[2024-06-13] MEDS: Ringers Lactate 1,000 ML IV ONE (11:55)
[2024-06-13] MEDS ORDERED: propofoL 200 MG/20 ML VIAL IV ONE (12:13)
[2024-06-13] MEDS ORDERED: FENTANYL CITR 250 MCG/5 ML ONE (12:16)
[2024-06-13] MEDS ORDERED: LIDOCAINE 2% MPF 5 ML VIAL ONE (12:17)
[2024-06-13] MEDS ORDERED: ROCURONIUM 50 MG/5 ML VIAL IV ONE (12:18)
[2024-06-13] MEDS ORDERED: MIDAZOLAM HCL 2 MG/2 ML INJ ONE (12:18)
[2024-06-13] MEDS ORDERED: Phenylephrine HCl 10 MG/ML 1 ML VIAL ONE (14:11)
[2024-06-13] MEDS: CEFAZOLIN SODIUM 1 GM/VIAL ONE (14:12)
[2024-06-13] MEDS: LIDOCAINE HCL/EPINEPHRINE 20 ML MDV ONE (14:33)
[2024-06-13] MEDS ORDERED: dexAMETHasone 4 MG/ML VIAL ONE (14:57)
[2024-06-13] MEDS ORDERED: ONDANSETRON 4 MG/2 ML VIAL ONE (14:57)
[2024-06-13] MEDS ORDERED: LABETALOL 20 MG/4ML SYRINGE IV ONE (15:02)
[2024-06-13] MEDS ORDERED: NEOSTIGMINE 1 MG/ML -10 ML VIAL ONE (16:01)
[2024-06-13] MEDS ORDERED: GLYCOPYRROLATE 0.2 MG/ML SYR ONE (16:01)
--- NOTE | 2024-06-13 16:09 | P.OP ---
Preoperative diagnosis: Umbilical and LEFT Inguinal Hernias Postoperative diagnosis: Umbilical and LEFT Inguinal Hernias Primary procedure: Laparoscopic Umbilical Hernia Repair with mesh Secondary procedure: Open LEFT Inguinal Hernia Repair with mesh Anesthesia: GETA + Local Estimated blood loss: <5cc Specimen: Umbilical Contents, LEFT cord lipoma and hernia sack Findings: 1cm umbilical hernia, LEFT inguinal hernia Complications: None Implants: 11.4cm Round Ventralite ST, Sorbafix x 45, Medium Perfix Plug/ Patch Transferred to: Recovery Room Condition: Good
[2024-06-13] MEDS ORDERED: KETOROLAC 30 MG/ML INJ ONE (16:25)
[2024-06-13] MEDS: MEPERIDINE HCL 25 MG/ML SYR ONE (16:25)
[2024-06-13] MEDS: HYDROMORPHONE HCL 1 MG/ML INJ ONE ×2 (16:30→16:45)
[2024-06-13] MEDS: HYDROCODONE/APAP 10/325 TAB ONE (17:47)
[2024-06-13 18:19] VITALS: BP 139/78; TEMP 98.5; O2SAT 95
--- NOTE | 2024-06-14 23:02 | OP ---
Date of Procedure: 06/13/2024 Surgeon: Ashutosh Hogue MD, Brief History Of Present Illness: Patient is a 59-year-old male who had several hernias, saw him in the clinic, determined he was appropriate for operative intervention. Explained risks, benefits, alt ernatives. The patient agreed to proceed. Preoperative Diagnosis: Umbilical hernia and left inguinal hernia. Postoperative Diagnosis: Umbilical hernia and left inguinal hernia. Procedure: Laparoscopic umbilical hernia repair with mesh and open left inguinal hernia repair with mesh. Anesthesia: General endotracheal plus local with 1% lidocaine. Estimated Blood Loss: Less than 5 cc. Specimen: Umbilical contents and left cord lipoma with hernia sac. Findings: Approximately 1 cm umbilical hernia and left inguinal hernia. Complications: None. Implants: 11.[address] mesh with Echo positioning system, SorbaFix absorbable fixatio n tacks size 45, and a medium Bard PerFix plug and patch repair system. Disposition: The patient was transferred to recovery room in good condition. Procedure In Detail: After informed consent was obtained, patient was brought to the operating room, prepped in usual sterile fashion. After adequate anesthesia achieved, anesthetized an area of the l eft upper quadrant down to the subcutaneous tissues. 5 mm 0 degree optical trocar was introduced in the abdomen without incident or complication. Insufflation was obtained to 15 mmHg at this time. Th ere was no injury to vital structures upon entry in the abdomen. At this point, additional trocars p laced in the left lower abdomen, which was 12 mm trocar, placed under direct vision without any evide nce of complication. I then proceeded to use the LigaSure device to take down preperitoneal fat from the umbilical hernia finding approximately a 1 cm umbilical hernia defect. At this point, I swept b ack preperitoneal fat to the superior and inferior aspects to allow for appropriate landing zone of t he mesh. I then closed the hernia defect using a 0 V-Loc suture on an Endo Stitch imbricating the he rnia sac in its entirety with good apposition of the tissues. I then deployed the Bard Ventralight S T mesh with Echo positioning system, 11.4 cm round mesh utilized to the anterior abdominal wall, secu ring it with SorbaFix absorbable fixation tacks. The balloon deployment system was removed, found to be intact on the back table, then secured a total 45 absorbable tacks to the anterior abdominal wall with good apposition of the mesh. At this point, the 12 mm trocar site was closed using a Enoch-Th omason suture passer with 0 Vicryl in interrupted fashion with good approximation of the tissues. Th ere was no hemostatic measures required at this point. The abdomen was then desufflated under direct vision without incident or complication. All remaining trocars were removed. All skin edges were t hen copiously irrigated and closed with a 4-0 Monocryl in a running fashion. Dermabond was placed ov er top the top. I then turned my attention to the left inguinal region. At this point, I palpated brain arce left inguinal hernia. I made an incision overlying the left inguinal region down to the subcutane ous tissues. After appropriately anesthetizing the skin, I dissected down through [place] fat and Sca rpa fascia to expose the external oblique aponeurosis. This was opened sharply in its entirety. It was found to be quite thin at this point. I then dissected circumferentially around the spermatic co rd structures and dissected free a hernia sac from this area. The hernia sac was opened as it was a tight apposition. I removed a cord lipoma, sent off for pathologic examination. I then removed the hernia contents, which adipose tissue as well as hernia sac material. I then imbricated brian arce hernia sac using 3-0 Vicryl suture and placed back in the preperitoneal space. I then deployed a medium Bard PerFix plug and patch hernia repair system in the preperitoneal space behind the imbricat ed hernia sac and secured it circumferentially around the edges using the same said 2-0 PDS suture wi th good apposition of the mesh to this region. I then placed and sized a hernia patch appropriately, secured it to the pubic tubercle in medial aspect and circumferentially around the shelving edge of both the internal oblique aponeurosis and the undersurface of the inguinal ligament using the same se t 2-0 PDS suture in interrupted fashion with good approximation of tissues. I then reconstituted the deep inguinal ring using the same set 2-0 PDS suture and trimmed the edges of the patch and irrigate d the area copiously and dried it completely at this point. I then closed the external oblique apone urosis using a 3-0 Vicryl suture in a running fashion and ultimately closed the deep dermal plane wit h same said 3-0 Vicryl suture in an interrupted fashion. Skin was closed with 4-0 Monocryl in a runn ing fashion. Dermabond was placed over the top. The patient tolerated the procedure well without ev idence of complication and transferred to PACU in good condition. All counts were correct at the end of the case. DIANA/FRANCHESCA Voice ID: [id number] Report ID: [id number]
== END 2024-06-13 18:19 | disposition home or self-care (01) ==
LOC: OR 11:34
PROVIDERS: ATTEND Surgery
PROC: 0WUF4JZ Supplement Abdominal Wall with Synthetic Substitute, Percutaneous Endoscopic Approach (ICD-10-PCS; principal; 2024-06-13 14:15)
PROC: 0YU60JZ Supplement Left Inguinal Region with Synthetic Substitute, Open Approach (ICD-10-PCS; 2024-06-13 14:15)
DX: K42.9 Umbilical hernia without obstruction or gangrene (principal); K40.90 Unilateral inguinal hernia, without obstruction or gangrene, not specified as recurrent
CPT/HCPCS: 93005; 85025; 80048; 36415; 88302; 49591; 49520; J2704; J1100; J2710; J2371; J2003; J2250; J3010; J2175; J1171 ×2; J2405; J7120; J0690; C1781